=== PATIENT | male | born 1940 ===

== ENCOUNTER 2018-08-24 01:05 | Observation (INO) | payer MEDICARE, OTHER ==
[~2018-08-24] VITALS: Ht 182.9 cm; Wt 82.8 kg
[~2018-08-24 01:05] MED LIST: LOSA25 PO
[2018-08-24] MEDS ORDERED: DOXA4 PO (01:17)
[2018-08-24] MEDS ORDERED: LOSA50 PO (01:17)
[2018-08-24] MEDS ORDERED: ANORO ELLIPTA1 EACH INH (01:18)
[2018-08-24] MEDS ORDERED: ALBU90OI6 INH (01:18)
[2018-08-24 01:25] LABS: BASOPHILS ABSOLUTE AUTO 0.03 K/mm3 (0.00-0.23); BASOPHILS PERCENT AUTO 1 % (0-2); EOSINOPHILS ABSOLUTE AUTO 0.22 K/mm3 (0.00-0.68); EOSINOPHILS PERCENT AUTO 5 % (0-6); Hematocrit 39.5 % (37.0-53.0); IMMATURE GRAN ABSOLUTE AUTO 0.02 K/mm3 (0.00-0.10); IMMATURE GRAN PERCENT AUTO 0 % (0-1); LYMPHOCYTES ABSOLUTE AUTO 1.31 K/mm3 (0.84-5.20); LYMPHOCYTES PERCENT AUTO 27 % (21-46); MONOCYTES ABSOLUTE AUTO 0.54 K/mm3 (0.16-1.47); MONOCYTES PERCENT AUTO 11 % (4-13); Mean Corpuscular HGB 32.3 pg (26.0-34.0); Mean Corpuscular HGB Conc 32.9 g/dL (31.5-36.5); Mean Corpuscular Volume 98 fL (80-100); Mean Platelet Volume 9.3 fL (9.1-12.4); NEUTROPHILS ABSOLUTE AUTO 2.72 K/mm3 (1.96-9.15); NEUTROPHILS PERCENT AUTO 56 % (41-73); Platelet Count 173 K/mm3 (150-400); RDW Coefficient Variation 12.3 % (11.7-14.2); RDW Standard Deviation 44.6 fL (35.1-46.3); Red Blood Cell Count 4.03 M/mm3 (4.30-5.90); White Blood Cell Count 4.84 K/mm3 (4.00-11.30)
[2018-08-24 01:41] LABS: Source, Urine Clean Catch
[2018-08-24 01:42] LABS: Bilirubin, Urine Neg (Neg); Blood, Urine Neg (Neg); Glucose Qualitative, Urine Neg (Neg); Ketones, Urine Neg (Neg); Leukocyte Esterase, Urine Neg (Neg); Nitrite, Urine Neg (Neg); Protein, Urine 1+ (Neg); Specific Gravity, Urine 1.015 (1.003-1.022); Urobilinogen, Urine NORM (Normal)
[2018-08-24 01:45] LABS: Appearance, Urine Clear (Clear); Color, Urine Yellow (P-Yellow)
[2018-08-24 01:46] LABS: Alanine Aminotransfer (ALT/SGP 14 U/L (12-78); Albumin, Blood 3.3 g/dL (3.4-5.0); Albumin/Globulin Ratio 0.8 (0.8-1.8); Alk Phos 66 U/L (50-136); Anion Gap 10 mmol/L (6-16); Aspartate Aminotrans (AST/SGOT 13 U/L (12-37); Bilirubin, Total 0.2 mg/dL (0.1-1.0); Blood Urea Nitrogen 16 mg/dL (8-24); Bun/Creatinine Ratio 14.7 (12.0-20.0); CO2, Blood 26 mmol/L (21-32); Calcium, Blood 7.9 mg/dL (8.5-10.1); Chloride, Blood 99 mmol/L (98-108); Creatinine, Blood 1.09 mg/dL (0.60-1.20); Globulin, Blood 3.9 g/dL (2.2-4.0); Glomerular Filtration Rate >60 (60-); Glucose, Blood 101 mg/dL (70-99); Potassium, Blood 3.8 mmol/L (3.5-5.5); Sodium, Blood 135 mmol/L (136-145); Total Protein, Blood 7.2 g/dL (6.4-8.2); Troponin I <0.015 ng/mL (0.000-0.040)
--- NOTE | 2018-08-24 04:38 | NUR ---
SUMMARY PT ADMITTED TO THE FLOOR. PT IS A&O X4, STAND BY ASSIST TO THE BATHROOM. PT HAD A BM. PT DENIES VERTIGO/NAUSEA. PT ACCOMPANIED BY HIS . IN TO ASSESS PT. VSS, NS INFUSING @ 75 ML/HR. CALL LIGHT IN REACH. PT ENCOURAGED TO CALL FOR ASSISTANCE TO THE BATHROOM. WCELVIN.
[2018-08-24 05:45] LABS: Hematocrit 37.6 % (37.0-53.0); Hemoglobin 12.5 g/dL (13.5-17.5); Mean Corpuscular HGB 31.7 pg (26.0-34.0); Mean Corpuscular HGB Conc 33.2 g/dL (31.5-36.5); Mean Platelet Volume 9.5 fL (9.1-12.4); Platelet Count 176 K/mm3 (150-400); RDW Coefficient Variation 12.3 % (11.7-14.2); RDW Standard Deviation 42.5 fL (35.1-46.3); Red Blood Cell Count 3.94 M/mm3 (4.30-5.90); White Blood Cell Count 5.53 K/mm3 (4.00-11.30)
[2018-08-24 05:51] LABS: Mean Corpuscular Volume 95 fL (80-100)
[2018-08-24 06:18] LABS: Alanine Aminotransfer (ALT/SGP 14 U/L (12-78); Albumin, Blood 3.3 g/dL (3.4-5.0); Alk Phos 61 U/L (50-136); Anion Gap 8 mmol/L (6-16); Aspartate Aminotrans (AST/SGOT 14 U/L (12-37); Bilirubin, Total 0.4 mg/dL (0.1-1.0); Blood Urea Nitrogen 17 mg/dL (8-24); CO2, Blood 25 mmol/L (21-32); Calcium, Blood 7.9 mg/dL (8.5-10.1); Chloride, Blood 102 mmol/L (98-108); Globulin, Blood 3.4 g/dL (2.2-4.0); Glomerular Filtration Rate >60 (60-); Glucose, Blood 90 mg/dL (70-99); Potassium, Blood 4.5 mmol/L (3.5-5.5); Sodium, Blood 135 mmol/L (136-145); Total Protein, Blood 6.7 g/dL (6.4-8.2)
--- NOTE | 2018-08-24 13:56 | NUR ---
PT READY TO BE DISCHARGED ATE LUNCH, USED RESTROOM AND AMBULATED THROUGH HALLS W/O DIFFICULTY. DENIES ANY DIZZINESS.
--- NOTE | 2018-08-24 14:49 | NUR ---
DISCHARGED REVIEWED DC PAPERWORK; PT VERBALIZED UNDERSTANDING. DC'D IV, CATHETER INTACT. PT LEFT UNIT IN WC ACCOMPANIED BY SPOUSE W/POSSESSIONS AND DC PAPERWORK IN HAND.
== END 2018-08-24 15:04 | disposition home or self-care (01) ==
LOC: ER 01:05 → SURS 02:46
PROVIDERS: Emergency Medicine; ADMIT Internal Medicine
DX: I95.1 Orthostatic hypotension (principal); J44.9 Chronic obstructive pulmonary disease, unspecified; I10 Essential (primary) hypertension; Z79.899 Other long term (current) drug therapy; Z85.46 Personal history of malignant neoplasm of prostate; Z92.3 Personal history of irradiation; Z87.891 Personal history of nicotine dependence; Z87.19 Personal history of other diseases of the digestive system
CPT/HCPCS: 36415; 71046; 80053; 83690; 84484; 85025; 85027; 93005; 93010; 96372; 99285-25; G0378; J1650; J7030

== ENCOUNTER 2018-09-26 16:47 | Emergency (ER) | payer MEDICARE, OTHER ==
[~2018-09-26] VITALS: Ht 182.9 cm; Wt 81.7 kg
[~2018-09-26 16:47] MED LIST changes: +ALBU90OI6 INH; +ANORO ELLIPTA1 EACH INH; +DOXA4 PO; +LOSA50 PO
[2018-09-26 17:34] LABS: BASOPHILS ABSOLUTE AUTO 0.03 K/mm3 (0.00-0.23); BASOPHILS PERCENT AUTO 0 % (0-2); EOSINOPHILS ABSOLUTE AUTO 0.18 K/mm3 (0.00-0.68); EOSINOPHILS PERCENT AUTO 3 % (0-6); Hematocrit 42.4 % (37.0-53.0); IMMATURE GRAN ABSOLUTE AUTO 0.03 K/mm3 (0.00-0.10); IMMATURE GRAN PERCENT AUTO 0 % (0-1); LYMPHOCYTES ABSOLUTE AUTO 1.11 K/mm3 (0.84-5.20); LYMPHOCYTES PERCENT AUTO 16 % (21-46); MONOCYTES ABSOLUTE AUTO 0.63 K/mm3 (0.16-1.47); MONOCYTES PERCENT AUTO 9 % (4-13); Mean Corpuscular HGB 32.1 pg (26.0-34.0); Mean Corpuscular Volume 97 fL (80-100); Mean Platelet Volume 9.3 fL (9.1-12.4); NEUTROPHILS ABSOLUTE AUTO 4.95 K/mm3 (1.96-9.15); NEUTROPHILS PERCENT AUTO 72 % (41-73); Platelet Count 192 K/mm3 (150-400); RDW Coefficient Variation 12.5 % (11.7-14.2); RDW Standard Deviation 45.2 fL (35.1-46.3); Red Blood Cell Count 4.36 M/mm3 (4.30-5.90); White Blood Cell Count 6.93 K/mm3 (4.00-11.30)
[2018-09-26 17:57] LABS: Alanine Aminotransfer (ALT/SGP 19 U/L (12-78); Albumin, Blood 3.6 g/dL (3.4-5.0); Albumin/Globulin Ratio 0.9 (0.8-1.8); Alk Phos 64 U/L (50-136); Anion Gap 7 mmol/L (6-16); Aspartate Aminotrans (AST/SGOT 16 U/L (12-37); Bilirubin, Total 0.4 mg/dL (0.1-1.0); Blood Urea Nitrogen 16 mg/dL (8-24); Bun/Creatinine Ratio 14.2 (12.0-20.0); CO2, Blood 26 mmol/L (21-32); Calcium, Blood 8.1 mg/dL (8.5-10.1); Chloride, Blood 100 mmol/L (98-108); Creatinine, Blood 1.13 mg/dL (0.60-1.20); Globulin, Blood 4.1 g/dL (2.2-4.0); Glomerular Filtration Rate >60 (60-); Glucose, Blood 115 mg/dL (70-99); Potassium, Blood 4.2 mmol/L (3.5-5.5); Sodium, Blood 133 mmol/L (136-145); Total Protein, Blood 7.7 g/dL (6.4-8.2); Troponin I <0.015 ng/mL (0.000-0.040)
== END 2018-09-26 20:38 | disposition home or self-care (01) ==
LOC: ER 16:47
PROVIDERS: Emergency Medicine
DX: R55 Syncope and collapse (principal); Z79.899 Other long term (current) drug therapy; J45.909 Unspecified asthma, uncomplicated; I10 Essential (primary) hypertension; Z87.891 Personal history of nicotine dependence
CPT/HCPCS: 36415; 71046; 80053; 83735; 84484; 85025; 93005; 93010; 99284-25

== ENCOUNTER → 2020-02-29 | Outpatient (CLI) | payer MEDICARE, OTHER | LOC: PLD 07:34 → LAB SHORT 07:34 → LAB 07:34 | DX: D48.5 Neoplasm of uncertain behavior of skin (principal) | CPT/HCPCS: 88342 ==

== ENCOUNTER 2024-10-07 07:43 | Inpatient (IN) | payer MEDICARE, OTHER ==
[~2024-10-07] VITALS: Ht 182.9 cm; Wt 83.9 kg
[2024-10-07] MEDS ORDERED: Albuterol 2.5 MG/3 ML VIAL INH SCH (08:35)
[2024-10-07] MEDS ORDERED: Ipratropium Bromide INH 0.02% 0.5 mg/2.5ML Vial INH SCH (08:35)
[2024-10-07] MEDS ORDERED: Acetaminophen 325 MG TABLET PO ONE (08:40)
[2024-10-07 08:44] LABS: BASOPHILS ABSOLUTE AUTO 0.03 K/mm3 (0.00-0.23); BASOPHILS PERCENT AUTO 0 % (0-2); EOSINOPHILS PERCENT AUTO 0 % (0-6); Hematocrit 39.8 % (37.0-53.0); Hemoglobin 13.4 g/dL (13.5-17.5); IMMATURE GRAN ABSOLUTE AUTO 0.09 K/mm3 (0.00-0.10); IMMATURE GRAN PERCENT AUTO 1 % (0-1); LYMPHOCYTES ABSOLUTE AUTO 0.82 K/mm3 (0.84-5.20); LYMPHOCYTES PERCENT AUTO 8 % (21-46); MONOCYTES ABSOLUTE AUTO 0.59 K/mm3 (0.16-1.47); MONOCYTES PERCENT AUTO 6 % (4-13); Mean Corpuscular HGB 32.1 pg (26.0-34.0); Mean Corpuscular HGB Conc 33.7 g/dL (31.5-36.5); Mean Corpuscular Volume 95 fL (80-100); Mean Platelet Volume 10.6 fL (9.1-12.4); NEUTROPHILS ABSOLUTE AUTO 8.68 K/mm3 (1.96-9.15); NEUTROPHILS PERCENT AUTO 85 % (41-73); Platelet Count 152 K/mm3 (150-400); RDW Coefficient Variation 12.9 % (11.7-14.2); RDW Standard Deviation 45.2 fL (35.1-46.3); Red Blood Cell Count 4.17 M/mm3 (4.30-5.90); White Blood Cell Count 10.21 K/mm3 (4.00-11.30)
[2024-10-07 08:57] LABS: Albumin, Blood 3.3 g/dL (3.4-5.0); Albumin/Globulin Ratio 0.8 (0.8-1.8); Bilirubin, Total 0.6 mg/dL (0.1-1.0); Bun/Creatinine Ratio 14.9 (12.0-20.0); Calcium, Blood 8.3 mg/dL (8.5-10.1); Creatinine, Blood 1.21 mg/dL (0.60-1.20); Globulin, Blood 4.3 g/dL (2.2-4.0); Potassium, Blood 3.6 mmol/L (3.5-5.5); Total Protein, Blood 7.6 g/dL (6.4-8.2)
[2024-10-07 09:22] LABS: Influenza B, PCR NEGATIVE (NEGATIVE); Resp Syncytial Virus, PCR NEGATIVE (NEGATIVE); SARS-Cov-2 (COVID-19) PCR, MMC NEGATIVE (NEGATIVE)
[2024-10-07 09:38] LABS: Influenza A, PCR POSITIVE (NEGATIVE)
[2024-10-07] MEDS ORDERED: MONT10T PO (10:30)
[2024-10-07] MEDS ORDERED: AMLO10 PO (10:31)
[2024-10-07] MEDS ORDERED: ROSUVASTATIN CA10 MG PO (10:31)
[2024-10-07] MEDS ORDERED: Ondansetron 4 MG TAB PO PRN (11:10)
[2024-10-07] MEDS ORDERED: FLU VACC TS2024-25(6MOS UP)/PF 45 MCG/0.5 ML SYRINGE IM SCH (11:10)
[2024-10-07] MEDS ORDERED: NS 1,000 ML IV SCH (11:10)
[2024-10-07] MEDS ORDERED: MethylPREDNISolone Sod Succ 125 MG Vial IV SCH (16:00)
[2024-10-07 17:46] VITALS: BP 152/76
[2024-10-07] MEDS ORDERED: Rosuvastatin Calcium 10 MG Tab PO SCH (18:00)
--- NOTE | 2024-10-07 20:28 | NUR ---
SHIFT SUMMARY- PT ADMITTED THROUGH THE ED FOR FLU A AND PNEUMONIA. PT ARRIVED ON MED FLOOR, TOOK OFF HIS O2 AND WENT TO THE BATHROOM. PT WAS ASSISTED BY STAFF TO REPLACE THE O2 AND GET INTO THE BED. TELE PLACED. PT REQ A WARM BLANKET AND ONE WAS PROVIDED TO HIM. ADMISSION ASSESSMENT WAS COMPLETED. NO SKIN ISSUES NOTED, PT IN BED, NS PULLED AND WAS GIVEN TO NIGHT RN TO START, NO CURRENT S&S OF DISTRESS NOTED, LUNG SOUNDS COARSE AND WHEEZY T/O.
[2024-10-07] MEDS ORDERED: Oseltamivir Phosphate 75 MG Cap PO SCH (21:00)
[2024-10-07] MEDS ORDERED: Lactobacil 2-S.Thermo-Bifido 1 1 Cap PO SCH (21:00)
[2024-10-07] MEDS ORDERED: Montelukast Sodium 10 MG Tab PO SCH (21:00)
[2024-10-07 21:45] VITALS: BP 131/70
[2024-10-08] VITALS (9 sets, daily range): BP systolic 125–166; BP diastolic 61–93
[2024-10-08] MEDS ORDERED: Albuterol 2.5 MG/3 ML VIAL INH PRN ×2 (01:40→17:05)
[2024-10-08 05:29] LABS: Hematocrit 38.7 % (37.0-53.0); Mean Corpuscular HGB 32.6 pg (26.0-34.0); Mean Corpuscular HGB Conc 33.6 g/dL (31.5-36.5); Mean Corpuscular Volume 97 fL (80-100); Mean Platelet Volume 10.3 fL (9.1-12.4); Platelet Count 132 K/mm3 (150-400); RDW Coefficient Variation 12.9 % (11.7-14.2); RDW Standard Deviation 46.7 fL (35.1-46.3); Red Blood Cell Count 3.99 M/mm3 (4.30-5.90); White Blood Cell Count 11.57 K/mm3 (4.00-11.30)
[2024-10-08 05:55] LABS: BAND PERCENT MAN 35 % (0-8); BASOPHILS PERCENT MAN 0 % (0-2); EOSINOPHILS PERCENT MAN 0 % (0-6); LYMPHOCYTES ABSOLUTE MAN 0.23 K/mm3 (0.84-5.20); LYMPHOCYTES PERCENT MAN 2 % (21-46); METAMYELOCYTE ABSOLUTE MAN 0.11 K/mm3 (0.00-0.00); METAMYELOCYTE PERCENT MAN 1 % (0-0); MONOCYTES ABSOLUTE MAN 0.34 K/mm3 (0.16-1.47); MONOCYTES PERCENT MAN 3 % (4-13); NEUTROPHILS ABSOLUTE MAN 10.87 K/mm3 (1.96-9.15); SEG NEUTROPHILS PERCENT MAN 59 % (41-73); TOTAL CELLS COUNTED 100
[2024-10-08 05:58] LABS: Albumin, Blood 2.8 g/dL (3.4-5.0); Albumin/Globulin Ratio 0.7 (0.8-1.8); Bilirubin, Total 0.6 mg/dL (0.1-1.0); Bun/Creatinine Ratio 20.3 (12.0-20.0); Calcium, Blood 8.1 mg/dL (8.5-10.1); Creatinine, Blood 1.28 mg/dL (0.60-1.20); Globulin, Blood 4.2 g/dL (2.2-4.0); Potassium, Blood 3.9 mmol/L (3.5-5.5)
--- NOTE | 2024-10-08 06:36 | NUR ---
SHIFT SUMMARY: Pt admitted for acute respiratory failure and is a full code. Is alert and able to make needs known. ADLs have been SBA. is on droplet ISO for FLU A. denies pain or discomfort when asked. On 2l of O2 to maintain SPO2 greater than 90%. Telly reports sinus in the 70s with no events.
[2024-10-08] MEDS ORDERED: Enoxaparin 40 MG/0.4 ML SYR SC SCH (09:00)
[2024-10-08] MEDS ORDERED: Misc. Inhaler INH SCH ×2 (09:00→09:55)
[2024-10-08] MEDS ORDERED: AmLODIPine Besylate 5 MG Tab PO SCH (09:00)
--- NOTE | 2024-10-08 17:21 | NUR ---
CALLED DR IBANEZ- PT HAD A 6 SECOND RUN OF SVT. ON ASSESSMENT THE PT IS SITTING UP IN BED WITH NO S&S OF DISTRESS, HOWEVER WHEN ATTEMPTING TO PERFORM VITALS CHECK PT SATS WERE DOWN TO 88% AND AFTER SPEAKING HE BEGAN TO HAVE A LONG COUGHING FIT AND WAS UNABLE TO STOP. RT ARRIVED AND PROVIDED PT WITH JOSE Alarcon. CALLED AND SPOKE TO HER. SVT WAS 15 MINUTES AFTER IV SOLUMEDROL DOSE, AWARE. NO NEW ORDERS AT THIS TIME. PT SITTING UP IN BED, CALL TIERRA IN REACH NO S&S OF DISTRESS AT THIS TIME, Tx RUNNING NOW.
[2024-10-08] MEDS ORDERED: GuaiFENesin 200 MG IR Tab PO PRN (19:10)
[2024-10-08 19:24] LABS: Magnesium, Blood 1.9 mg/dL (1.6-2.4)
[2024-10-08] MEDS ORDERED: Azithromycin 500 MG in NS 250 ML IV SCH (20:00)
[2024-10-08] MEDS ORDERED: CefTRIAXone Sodium 2,000 MG in NS 100 ML IV SCH (20:00)
[2024-10-08] MEDS ORDERED: NS 250 ML IV PRN ×2 (20:05→21:50)
--- NOTE | 2024-10-08 20:05 | NUR ---
SHIFT SUMMARY- PT HAD A RUN OF SVT THIS EVENING ABOUT AN HOUR AND A HALF LATER HE HAD A RUN OF SINUS TACH AT 160. CALLED DR IBANEZ AND SHE CAME TO SEE THE PT. ORDERS ARE IN FOR LABS, AND METOPROLOL, HOWEVER EKG SHOWS HB. DR REQUESTED METOPROLOL DC'D AND AMLODIPINE RESUMED. LAB CALLED AND THE MACHINE IS DOWN WELL THE BACKUP MACHINE FOR CHECKING THE POTASSIUM. CALLED DR WRAY AND SHE IS AWARE. THERE IS NO ETA ON THE POTASSIUM RESULTS. PT HAS BEEN ASYMPTOMATIC WITH THESE HEART RATE CHANGES. PT IS IN BED POST EKG, CALL LIGHT IN REACH NO S&S OF DISTRESS NOTED. REPORT COMPLETED WITH NIGHT RN AND DR IBANEZ.
[2024-10-08] MEDS ORDERED: Metoprolol Tartrate 25 MG Tab PO SCH (21:00)
[2024-10-08 21:02] LABS: Base Excess Venous 1.1 mmol/L; Bicarbonate Venous 25.5 mmol/L (24.0-30.0); PCO2 Venous 38.5 mmHg (38-42); pH Blood Venous 7.43 (7.34-7.37)
[2024-10-08 21:41] LABS: Potassium, Blood 3.9 mmol/L (3.5-5.5)
[2024-10-09 04:41] VITALS: BP 134/79
[2024-10-09 05:34] LABS: Hemoglobin 11.5 g/dL (13.5-17.5); Mean Corpuscular HGB 31.7 pg (26.0-34.0); Mean Corpuscular HGB Conc 32.9 g/dL (31.5-36.5); Mean Corpuscular Volume 96 fL (80-100); Mean Platelet Volume 11.2 fL (9.1-12.4); Platelet Count 134 K/mm3 (150-400); RDW Standard Deviation 45.7 fL (35.1-46.3); Red Blood Cell Count 3.63 M/mm3 (4.30-5.90)
[2024-10-09 06:04] LABS: BAND PERCENT MAN 29 % (0-8); BASOPHILS PERCENT MAN 0 % (0-2); EOSINOPHILS PERCENT MAN 0 % (0-6); LYMPHOCYTES ABSOLUTE MAN 0.31 K/mm3 (0.84-5.20); LYMPHOCYTES PERCENT MAN 4 % (21-46); MONOCYTES ABSOLUTE MAN 0.23 K/mm3 (0.16-1.47); MONOCYTES PERCENT MAN 3 % (4-13); NEUTROPHILS ABSOLUTE MAN 7.34 K/mm3 (1.96-9.15); SEG NEUTROPHILS PERCENT MAN 64 % (41-73); TOTAL CELLS COUNTED 100
[2024-10-09 06:12] LABS: Albumin, Blood 2.7 g/dL (3.4-5.0); Albumin/Globulin Ratio 0.7 (0.8-1.8); Bilirubin, Total 0.7 mg/dL (0.1-1.0); Bun/Creatinine Ratio 27.5 (12.0-20.0); Calcium, Blood 7.9 mg/dL (8.5-10.1); Creatinine, Blood 1.31 mg/dL (0.60-1.20); Globulin, Blood 4.1 g/dL (2.2-4.0); Total Protein, Blood 6.8 g/dL (6.4-8.2)
[2024-10-09 07:07] VITALS: BP 127/67
[2024-10-09] MEDS ORDERED: AmLODIPine Besylate 5 MG Tab PO SCH (09:00)
[2024-10-09 11:37] VITALS: BP 136/80
--- NOTE | 2024-10-09 12:30 | NUR ---
PT ON 3L NC. PT REPORTS RA AT BASELINE. O2 TITRATED. SATS AT 95-96% ON RA.
[2024-10-09 16:17] VITALS: BP 136/77
--- NOTE | 2024-10-09 19:21 | NUR ---
SHIFT SUMMARY PT IS A/OX4, SBA IN THE ROOM. PT'S O2 TITRATED DOWN THIS AFTERNOON, PT CURRENTLY ON RA, SATS MAINTAINING >95%. ON TELE RUNNING NORMAL SINUNS RYTHYM. PT IS PLEASANT AND COOPERATIVE WITH CARE AND CALLS APPROPRIATELY USING THE CALL LIGHT. AT BEDSIDE THROUGHOUT THIS SHIFT.
[2024-10-09 19:46] VITALS: BP 154/83
[2024-10-09] MEDS ORDERED: Docusate Sodium/Senna 1 Tab PO PRN (22:10)
[2024-10-09 23:58] VITALS: BP 135/77
[2024-10-10 04:53] VITALS: BP 141/82
[2024-10-10 06:17] LABS: BASOPHILS ABSOLUTE AUTO 0.01 K/mm3 (0.00-0.23); BASOPHILS PERCENT AUTO 0 % (0-2); EOSINOPHILS PERCENT AUTO 0 % (0-6); Hematocrit 33.4 % (37.0-53.0); Hemoglobin 11.2 g/dL (13.5-17.5); IMMATURE GRAN ABSOLUTE AUTO 0.05 K/mm3 (0.00-0.10); IMMATURE GRAN PERCENT AUTO 1 % (0-1); LYMPHOCYTES PERCENT AUTO 7 % (21-46); MONOCYTES ABSOLUTE AUTO 0.27 K/mm3 (0.16-1.47); MONOCYTES PERCENT AUTO 3 % (4-13); Mean Corpuscular HGB 32.2 pg (26.0-34.0); Mean Corpuscular HGB Conc 33.5 g/dL (31.5-36.5); Mean Corpuscular Volume 96 fL (80-100); Mean Platelet Volume 11.1 fL (9.1-12.4); NEUTROPHILS ABSOLUTE AUTO 7.61 K/mm3 (1.96-9.15); NEUTROPHILS PERCENT AUTO 89 % (41-73); Platelet Count 153 K/mm3 (150-400); RDW Coefficient Variation 12.9 % (11.7-14.2); RDW Standard Deviation 45.4 fL (35.1-46.3); Red Blood Cell Count 3.48 M/mm3 (4.30-5.90); White Blood Cell Count 8.54 K/mm3 (4.00-11.30)
[2024-10-10 06:45] LABS: Albumin, Blood 2.5 g/dL (3.4-5.0); Albumin/Globulin Ratio 0.7 (0.8-1.8); Bilirubin, Total 0.5 mg/dL (0.1-1.0); Bun/Creatinine Ratio 29.1 (12.0-20.0); Calcium, Blood 8.1 mg/dL (8.5-10.1); Creatinine, Blood 1.27 mg/dL (0.60-1.20); Globulin, Blood 3.8 g/dL (2.2-4.0); Potassium, Blood 4.1 mmol/L (3.5-5.5); Total Protein, Blood 6.3 g/dL (6.4-8.2)
--- NOTE | 2024-10-10 06:46 | NUR ---
Shift Summary Pt remained on RA t/o the night with no issues. On tele running SR, no events. Rcving IV ABX and steriods as ordered. No acute changes.
[2024-10-10 07:26] VITALS: BP 140/79
[2024-10-10] MEDS ORDERED: MethylPREDNISolone Sod Succ 125 MG Vial IV SCH (09:00)
[2024-10-10 11:43] VITALS: BP 141/77
[2024-10-10] MEDS ORDERED: Azithromycin 250 MG Tab PO ONE (14:00)
[2024-10-10] MEDS ORDERED: CEFP200 PO (14:48)
[2024-10-10] MEDS ORDERED: PRED20 PO (14:51)
[2024-10-10] MEDS ORDERED: OSEL75CA PO (14:52)
[2024-10-10] MEDS ORDERED: VISBIOME 112.51 EACH PO (14:53)
--- NOTE | 2024-10-10 15:15 | NUR ---
PT DISCHARGED TO HOME WTH . DISCHARGE INSTRUCTIONS PROVIDED AND EDUCATED ON AT TIME OF DISCHARGE. ALL VALUABLES RETURNED AND SENT HOME WITH THE PT.
== END 2024-10-10 15:13 | disposition home or self-care (01) | DRG 193 ==
LOC: ER 07:43 → ERHOLD 07:44 → MEDS 07:44
PROVIDERS: Physician Assistant; ADMIT Family Medicine
DX: J10.08 Influenza due to other identified influenza virus with other specified pneumonia (principal); J96.01 Acute respiratory failure with hypoxia; I24.89 Other forms of acute ischemic heart disease; N17.9 Acute kidney failure, unspecified; I47.10 Supraventricular tachycardia, unspecified; J44.0 Chronic obstructive pulmonary disease with (acute) lower respiratory infection; J44.1 Chronic obstructive pulmonary disease with (acute) exacerbation; I10 Essential (primary) hypertension; D64.9 Anemia, unspecified; J15.9 Unspecified bacterial pneumonia; E86.0 Dehydration; Z85.46 Personal history of malignant neoplasm of prostate; Z92.3 Personal history of irradiation; Z87.891 Personal history of nicotine dependence; Z88.8 Allergy status to other drugs, medicaments and biological substances
CPT/HCPCS: 0241U; 36415; 71046; 80053; 82803; 83605; 83735; 83880; 84132; 84145; 84484; 85025; 93005; 93010; 94640; 94645; 94664; 94760; 94761; 96361; 96372; 96374; 96376; 99285-25; A9270; G0378; J0456; J0696; J1650; J2919; J7030; J7050